=== PATIENT | male | born 1960 | race Caucasian/White ===

== ENCOUNTER → 2017-05-31 | Day surgery (SDC) | payer OTHER ==
[~2017-05-31] VITALS: Ht 162.6 cm; Wt 85.4 kg
[~2017-05-31] MED LIST: ACETAMINOPHEN 1000 MG/100 ML 100 ML IV SCH; BUPIVACAINE LIPOSOME PF 1.3% 20 ML VIAL ONE; BUPIVACAINE/EPINEPHRINE 0.25% PF 30 ML VIAL ONE; CHLORHEXIDINE GLUCONATE 2 % 1 PACK (2 CLOTHS) TOPICAL PRN; DEXAMETHASONE SOD PHOS 4 MG/ML VIAL IV ONE; DILT120T PO; DO NOT ADM ANY ANTICOAGULANT DRUGS PRN; GLYCOPYRROLATE 1 MG/5 ML SYRINGE IV PUSH ONE; KETOROLAC TROMETHAMINE 30 MG/ML (IVP) VIAL IV PUSH ONE; KETOROLAC TROMETHAMINE 30 MG/ML (IVP) VIAL ONE; LACTATED RINGER'S 1000 ML IV PRN; LIDOCAINE HCL 1% PF 5 ML SYRINGE OTHER ONE; METOPROLOL TARTRATE 25 MG TAB PO PRN; MIDAZOLAM HCL 2 MG/2 ML VIAL IV ONE; MORPHINE SULFATE 4 MG/ML INJ IV PUSH PRN; NEOSTIGMINE 5 MG/5 ML SYRINGE IV PUSH ONE; ONDANSETRON HCL 4 MG/2 ML VIAL IV PUSH ONE; ONDANSETRON HCL 4 MG/2 ML VIAL IV PUSH PRN; POVIDONE IODINE 5% (ANTISEPSIS KIT) 4 APPLICATIONS EACH NARE PRN; PROPOFOL 200 MG/20 ML AMP IV ONE; ROCURONIUM INJ 50 MG/5 ML SYRINGE IV PUSH ONE; SODIUM CHLORID 0.9% 500 ML IV PRN; SODIUM CHLORIDE 0.9% 20 ML VIAL ONE; SODIUM CHLORIDE 0.9% FLUSH 10 ML FLUSH IV FLUSH PRN; SODIUM CHLORIDE 0.9% FLUSH 10 ML FLUSH IV FLUSH SCH; VANCOMYCIN 500 MG VIAL ONE; XANA1TAB2 PO; metroNIDAZOLE 500 MG INJ 100 ML IV ONE; oxyCODONE/ACETAMINOPHEN 5 MG/325 MG TAB PO PRN
--- NOTE | 2017-05-31 13:30 | PD.OP ---
cc: Ambrose Stoner MD Operative Report Date of Surgery: May 31, 2017 Preoperative Diagnosis: Umbilical hernia Postoperative Diagnosis: Umbilical hernia Procedure: Laparoscopic repair of umbilical hernia with ventral light ST mesh Anesthesia: General endotracheal Surgeon: Ambrose Stoner Cuff Setter Lockstitch(s): Baylee Lazcano CFA Operation and Findings: Operative findings and procedure: The patient was found to have a 2 cm uncomplicated umbilical hernia with a minimal diastases superior to it. The patient was brought to the operating room and after satisfactory general endotracheal anesthesia obtained, patient underwent placement of a TA P block with Exparel. The abdomen was then prepped and draped in usual sterile fashion. 0.25% Marcaine with epinephrine was used to straight skin for local anesthesia. Small incision was made in the left subcostal region and the perineal cavity was entered bluntly with care being taken not to injure the underlying viscera. A balloontipped trocar was placed within the peritoneal cavity and the balloon engaged. The abdomen was then insufflated 15 mmHg using carbon dioxide. The camera was reinserted and visceral injury inspected for with none being identified. Under direct visualization 25 ports were placed along the left side of the abdomen. The fat attached to the peritoneum around the umbilicus was taken down the Harmonic scalpel to allowfor a piece of mesh. A 4 inch diameter rounded ventral light ST mesh was selected. It was soaked with saline and rolled and placed within the peritoneal cavity. It was then unfurled and the insufflation tubing was brought through an incision just above the umbilicus with a Lynch suture passer. The mesh backbone was inflated and brought into close the proximal patient of the anterior abdominal wall. It was placed at least 7 cm above the umbilical hernia defect with the lower edge 4 cm below the umbilical hernia defect. It was then secured into place with circumferential absorb attacks. The mesh backbone was removed and the remainder of the mesh was tacked in the place with the remainder of the absorb attacks so that it was in close approximation all areas to the anterior abdominal wall. Hemostasis was checked for and found be satisfactory the carbon dioxide was then vented as completely as possible the atmosphere. The ports were removed and the fascial defect at the left subcostal region was closed in interrupted 0 Vicryl suture and the skin was closed with interrupted 4-0 PDS subcuticular stitches. Steri-Strips were applied and the patient was then awakened and taken from the operating room, in satisfactory condition, having tolerated the procedure problem. Estimated blood loss was less than 5 mL's. The instrument, sponge, needle counts were reported as being correct 2 at the end of procedure. Ambrose Stoner MD May 31, 2017 13:30
[2017-05-31 14:51] VITALS: BP 156/67; PULSE 73; RESP 18; TEMP 98.1; O2SAT 95
== END | disposition home or self-care (01) ==
LOC: HSDC 10:16
PROVIDERS: ATTEND Surgery
DX: K42.9 Umbilical hernia without obstruction or gangrene (principal); E78.5 Hyperlipidemia, unspecified; I10 Essential (primary) hypertension; M54.5 Low back pain; R06.09 Other forms of dyspnea; N50.89 Other specified disorders of the male genital organs; N50.3 Cyst of epididymis; J34.2 Deviated nasal septum
CPT/HCPCS: 00750; 49652; C1781; C9290; J0131; J1100; J1885; J2250; J2405; J2710; J3010; J3370; J7120